=== PATIENT | male | born 1960 | race American Indian/Alaskan Native ===

== ENCOUNTER 2017-06-10 21:24 | Emergency (ER) | payer BC ==
[2017-06-10 23:09] LABS: Hematocrit 35.6 % (35.5-45.6); Hemoglobin 11.5 gm/dl (11.8-15.2); Mean Corpuscular HGB Conc 32 % (32-34); Mean Corpuscular Hemoglobin 26 pg (28-32); Mean Corpuscular Volume 82 fl (84-94); Platelet Count 317 K/mm3 (140-440); Red Blood Count 4.34 M/mm3 (3.65-5.03); Red Cell Distribution Width 13.1 % (13.2-15.2)
[2017-06-10 23:31] LABS: Alanine Aminotransferase 29 units/L (7-56); Albumin 3.2 g/dL (3.9-5); BUN/Creatinine Ratio 19; Blood Urea Nitrogen 21 mg/dL (9-20); Calcium 8.6 mg/dL (8.4-10.2); Hemolysis Index 4
[2017-06-11 01:08] LABS: Band Neutrophils # (Manual) 2.2 K/mm3; Basophils % (Manual) 0 % (0.0-1.8); Eosinophils % (Manual) 0 % (0.0-4.3); Total Cells Counted 100
[2017-06-11 01:09] LABS: Anisocytosis 1+; Hypochromasia 1+
[2017-06-11 02:09] LABS: Amorphous Crystals,Urine Few; Bilirubin,Urine NEG (Negative); Blood,Urine MOD (Negative); Color,Urine Yellow (Yellow); Hyaline Casts,Urine 70 /LPF; Mucus,Urine FEW /HPF; Nitrite,Urine NEG (Negative); Urobilinogen,Urine < 2.0 mg/dL (<2.0)
[2017-06-11] MEDS ORDERED: ZOFRAN ONE ×2 (02:33→03:03)
[2017-06-11] MEDS ORDERED: MORPHINE ONE ×2 (03:04→03:05)
[2017-06-11] MEDS ORDERED: ZOFRAN IV ONE (03:15)
[2017-06-11] MEDS ORDERED: MORPHINE IV ONE (03:15)
--- NOTE | 2017-06-11 03:48 | Emergency Department Report ---
HPI - General Chief Complaint: Abdominal Pain Time Seen by Provider: 06/11/17 03:13 - HPI HPI: Room 5 The patient is a 56-year-old male presenting with chief complaint of nausea vomiting diffuse body aches. Patient states symptoms began 5 weeks ago with "flulike symptoms." The patient states she went to [facility] for evaluation where blood, urine and a nasal swab was performed. The patient states he was given prescription for medication for "the flu." The patient states medications only helped temporarily and eventually symptoms return. The patient states for the past 3 weeks she's had intractable nausea and vomiting and fatigue. Patient missed abdominal pain in addition to diffuse body aches. Patient denies diarrhea or fever. Patient denies dysuria or hematuria. Patient does admit to chills. The patient gives his pain a score of 5/10 Location: [See above] Duration: [See above] Quality: Soreness Severity: 5/10 Modifying factors: [see above] Context: [see above] Mode of transportation: [not driving] ED Past Medical Hx - Past Medical History Previous Medical History?: Yes Hx Hypertension: Yes Hx Diabetes: Yes (no meds) - Surgical History Past Surgical History?: No - Family History Family history: no significant - Social History Smoking Status: Never Smoker Substance Use Type: None - Medications Home Medications: Home Medications Medication Instructions Recorded Confirmed Last Taken Type Ondansetron [Zofran Odt] 4 mg PO Q8HR #20 tab.rapdis 03/24/16 Unknown Rx Ranitidine HCl [Zantac 300 MG TAB] 300 mg PO QPM #30 tablet 03/24/16 Unknown Rx HYDROcodone/ACETAMINOPHEN [Virgil 1 - 2 each PO Q4-6H PRN #14 tablet 06/11/17 Unknown Rx 5-325 Tablet] Promethazine [Phenergan TAB] 25 mg PO Q6HR PRN #20 tab 06/11/17 Unknown Rx Promethazine [Phenergan] 25 mg MO Q6HR PRN #5 supp.rect 06/11/17 Unknown Rx ED Review of Systems ROS: Stated complaint: ABD PAIN Other details as noted in HPI Gastrointestinal: abdominal pain, nausea, vomiting Musculoskeletal: myalgia Physical Exam - Physical Exam Vital Signs: Vital Signs 06/10/17 22:21 Temperature 99.1 F Pulse Rate 81 Respiratory 18 Rate Blood Pressure 174/83 O2 Sat by Pulse 98 Oximetry Physical Exam: GENERAL: The patient is well-developed well-nourished male lying on stretcher not appear to be in acute distress. [] HEENT: Normocephalic. Atraumatic. Extraocular motions are intact. Patient has moist mucous membranes. NECK: Supple. Trachea midline CHEST/LUNGS: Clear to auscultation. There is no respiratory distress noted. HEART/CARDIOVASCULAR: Regular. There is no tachycardia. There is no gallop rub or murmur. ABDOMEN: Abdomen is soft, nontender. Patient has normal bowel sounds. There is no abdominal distention. SKIN: There is no rash. There is no edema. There is no diaphoresis. NEURO: The patient is awake, alert, and oriented. The patient is cooperative. The patient has normal speech MUSCULOSKELETAL: There is no evidence of acute injury. ED Course Vital Signs 06/10/17 22:21 Temperature 99.1 F Pulse Rate 81 Respiratory 18 Rate Blood Pressure 174/83 O2 Sat by Pulse 98 Oximetry ED Medical Decision Making - Lab Data Result diagrams: 06/10/17 22:56 06/10/17 22:56 Laboratory Tests 06/10/17 06/10/17 06/11/17 22:56 22:56 01:20 WBC 10.3 RBC 4.34 Hgb 11.5 L Hct 35.6 MCV 82 L MCH 26 L MCHC 32 RDW 13.1 L Plt Count 317 Add Manual Diff Complete Total Counted 100 Seg Neuts % (Manual) 58.0 Band Neutrophils % 21.0 Lymphocytes % (Manual) 11.0 L Reactive Lymphs % (Man) 0 Monocytes % (Manual) 8.0 H Eosinophils % (Manual) 0 Basophils % (Manual) 0 Metamyelocytes % 2.0 Myelocytes % 0 Promyelocytes % 0 Blast Cells % 0 Nucleated RBC % Not Reportable Seg Neutrophils # Man 6.0 Band Neutrophils # 2.2 Lymphocytes # (Manual) 1.1 L Abs React Lymphs (Man) 0.0 Monocytes # (Manual) 0.8 Eosinophils # (Manual) 0.0 Basophils # (Manual) 0.0 Metamyelocytes # 0.2 Myelocytes # 0.0 Promyelocytes # 0.0 Blast Cells # 0.0 WBC Morphology Not Reportable Hypersegmented Neuts Not Reportable Hyposegmented Neuts Not Reportable Hypogranular Neuts Not Reportable Smudge Cells Not Reportable Toxic Granulation Not Reportable Toxic Vacuolation Not Reportable Dohle Bodies Not Reportable Pelger-Huet Anomaly Not Reportable Ag Rods Not Reportable Platelet Estimate Appears normal Clumped Platelets Not Reportable Plt Clumps, EDTA Not Reportable Large Platelets Not Reportable Giant Platelets Not Reportable Platelet Satelliting Not Reportable Plt Morphology Comment Not Reportable RBC Morphology Not Reportable Dimorphic RBCs Not Reportable Polychromasia Not Reportable Hypochromasia 1+ Poikilocytosis Not Reportable Anisocytosis 1+ Microcytosis Not Reportable Macrocytosis Not Reportable Spherocytes Not Reportable Pappenheimer Bodies Not Reportable Sickle Cells Not Reportable Target Cells Not Reportable Tear Drop Cells Not Reportable Ovalocytes Not Reportable Helmet Cells Not Reportable [place] Bodies Not Reportable [place] Rings Not Reportable Jihan Cells Not Reportable Bite Cells Not Reportable Crenated Cell Not Reportable Elliptocytes Not Reportable Acanthocytes (Spur) Not Reportable Rouleaux Not Reportable Hemoglobin C Crystals Not Reportable Schistocytes Not Reportable Malaria parasites Not Reportable Romulo Bodies Not Reportable Hem Pathologist Commnt No Sodium 134 L Potassium 3.9 Chloride 89.0 L Carbon Dioxide 25 Anion Gap 24 BUN 21 H Creatinine 1.1 Estimated GFR > 60 BUN/Creatinine Ratio 19 Glucose 192 H Calcium 8.6 Total Bilirubin 0.30 AST 50 H ALT 29 Alkaline Phosphatase 85 Total Protein 7.7 Albumin 3.2 L Albumin/Globulin Ratio 0.7 Urine Color Yellow Urine Turbidity Clear Urine pH 5.0 Ur Specific [place] 1.019 Urine Protein 100 mg/dl Urine Glucose (UA) 50 Urine Ketones 20 Urine Blood Mod Urine Nitrite Neg Urine Bilirubin Neg Urine Urobilinogen < 2.0 Ur Leukocyte Esterase Neg Urine WBC (Auto) 5.0 Urine RBC (Auto) 4.0 U Epithel Cells (Auto) 1.0 Amorphous Crystals Few Hyaline Casts 70 Urine Mucus Few - Radiology Data Radiology results: report reviewed (ct abd pelvis), image reviewed (ct abd pelvis) - Differential Diagnosis partial small bowel obstruction, gastritis, hiatal hernia, inflammatory bow Critical care attestation.: If time is entered above; I have spent that time in minutes in the direct care of this critically ill patient, excluding procedure time. ED Disposition Clinical Impression: Nausea & vomiting, Body aches, Proteinuria Disposition: [id number] TO HOME OR SELFCARE Condition: Stable Prescriptions: HYDROcodone/ACETAMINOPHEN [Virgil 5-325 Tablet] 1 - 2 each PO Q4-6H PRN #14 tablet PRN Reason: Pain Promethazine [Phenergan TAB] 25 mg PO Q6HR PRN #20 tab PRN Reason: Nausea Promethazine [Phenergan] 25 mg MO Q6HR PRN #5 supp.rect PRN Reason: Vomiting Referrals: SHANTELL COLBERT MD [Staff Physician] - 3-5 Days (Dr. Colbert is a clothing worker. Please follow up with him for further evaluation of your proteinuria) LEONARDO ESPANA MD [Staff Physician] - 3-5 Days (Dr. Espana is a primary physician. Please follow up with him to be established as a patient) THERON BATES MD [Staff Physician] - 3-5 Days (Dr. Bates was a wool sorter. Please follow up with him for further evaluation)
[2017-06-11] MEDS ORDERED: NACL 0.9% 1000 ML 1,000 ML IV ONE (04:15)
--- NOTE | 2017-06-11 06:27 | Cat Scan Report ---
FINAL REPORT EXAM: CT ABDOMEN PELVIS W CON HISTORY: diffuse abdominal pain. Intractable nausea vomiti TECHNIQUE: Routine axial imaging was obtained of the abdomen and pelvis following the intravenous injection of 100 cc of Omnipaque 350. Delayed imaging was obtained through the kidneys ureters and bladder. Sagittal and coronal reconstructions were reviewed. FINDINGS: The lung bases are clear. Pleural fluid is not seen. There is a small hiatal hernia. There is diffuse mucosal thickening in the distal esophagus. The stomach is normal in size and configuration. The liver, gallbladder, pancreas, spleen, and adrenal glands appear normal. The kidneys enhance normally. There is no evidence of hydronephrosis. There is a 12 millimeter cortical cyst in left kidney. The vascular structures enhance normally. The bowel loops are normal in caliber and course. The appendix is not enlarged. There is no evidence of free fluid or adenopathy. In the pelvis the prostate gland is moderately enlarged. The bladder is moderately distended. The skeletal structures are unremarkable. IMPRESSION: No acute process in the abdomen and pelvis. Small hiatal hernia. Diffuse mucosal thickening of the distal esophagus. Whether this is related to inflammation or neoplasia is uncertain. An upper GI series recommended for better evaluation. Small cortical cyst in left kidney. Moderate enlargement of prostate gland with moderate distention of the bladder.
[2017-06-11 12:21] VITALS: BP 142/71
== END 2017-06-11 08:15 | disposition home or self-care (01) ==
LOC: ED 21:24
DX: R11.2 Nausea with vomiting, unspecified (principal); M79.1 Myalgia; R80.9 Proteinuria, unspecified; I10 Essential (primary) hypertension; E11.9 Type 2 diabetes mellitus without complications
CPT/HCPCS: 36415; 74177; 80053; 81001; 85007; 85025; 96361; 96374; 96375; 99284; J2270; J2405; J7030; Q9967